=== PATIENT | female | born 1990 | race African-American/Black ===

== ENCOUNTER 2017-10-05 19:53 | Emergency (ER) | payer OTHER ==
[~2017-10-05] VITALS: Ht 160 cm; Wt 73.9 kg
[2017-10-05] MEDS ORDERED: AMOX-CLAV 875-1 EACH PO (22:00)
[2017-10-05] MEDS ORDERED: IBUPROFEN600 MG PO (22:00)
== END 2017-10-05 22:04 | disposition home or self-care (01) ==
LOC: ER 19:53
DX: S61.210A Laceration without foreign body of right index finger without damage to nail, initial encounter (principal); W45.8XXA Other foreign body or object entering through skin, initial encounter; Y93.89 Activity, other specified; Y92.89 Other specified places as the place of occurrence of the external cause; Y99.8 Other external cause status